=== PATIENT | female | born 1980 | race Caucasian/White ===

== ENCOUNTER 2018-02-17 07:08 | Inpatient (IN) | payer MEDICAID ==
[2018-02-17] MEDS ORDERED: Ondansetron 4 MG/2 ML SDV IVPUSH PRN (07:35)
[2018-02-17] MEDS ORDERED: Nalbuphine 20 MG/1 ML Amp IVPUSH PRN (07:35)
[2018-02-17] MEDS ORDERED: Sodium Chloride 0.9% 10 ML Syringe FLUSH PRN (07:35)
[2018-02-17] MEDS ORDERED: Lactated Ringers 1,000 ML IV SCH (07:45)
[2018-02-17] MEDS ORDERED: Oxytocin/Lactated Ringers 10 UNIT/1,000 ML BAG IV SCH (07:45)
[2018-02-17] MEDS ORDERED: Clindamycin Phosphate 900 MG in Sodium Chloride 0.9% 100 ML IV SCH (08:00)
[2018-02-17] MEDS ORDERED: Clindamycin Phosphate 900 MG/6 ML AdvVial ONE (08:01)
[2018-02-17] MEDS ORDERED: Nalbuphine 20 MG/ML 1 ML Syringe IVPUSH PRN (09:45)
--- NOTE | 2018-02-17 11:40 | PCM.LDHP ---
L&D History of Present Illness - General Date of Service: 02/17/18 Admit Problem/Dx: Patient Status Order with Admit Dx/Problem 02/17/18 08:04 Patient Status [ADT] Routine Admission Diagnosis/Problem Admission Diagnosis/Problem Term 02/17/18 11:32 38-4/7 week intrauterine , active labor, advanced cervical dilation Source of Information: Patient History Limitations: Reports: No Limitations - History of Present Illness Introduction:: Wendy is a 37-year-old 1 para 0 white female who is admitted to labor and delivery on 02/17/2018 in active labor. She has an ROLY of 02/27/2018 placing her at 38-4/7 weeks gestational age. ROLY is return by certain last menstrual period starting 05/23/2017. She is in active labor annita approximately every 3 minutes. Contractions are moderate to strong intensity. Her cervix is dilated to 5 cm she evaluated in labor and delivery. Bag pittman intact. Patient does report some increased vaginal discharge. 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 Patient transferred her care to our clinic at approximately 34 weeks gestational age. [facility] [place] in [place] prior to that. She presently is at risk only because of age of 37. She declined genetic evaluation early in . She desires natural labor but is open to epidural. Group B strep screen is positive. Patient has received clindamycin. Patient made good fundal height growth during the course of her . Baby has been active. Laboratory testing shows blood to be O+, negative and by screen. RPR is nonreactive. Hep HIV is negative as are Chlamydia and gonorrhea assays. Her one- hour GTT was 63. Group B strep screen was positive. Group B strep sensitivity indicated bacteria sensitive to clindamycin. Allergies: animal dandercatheter, amoxicillin tablets, sulfur. Medications: 1. Nasal vitamins daily Past medical history: Unremarkable Past surgical history: Unremarkable Family history: Father secondary to brain cancer and MIs. Mother is alive but has a history of melanoma. One sister with scoliosis and arthritis. Internal grandmother secondary to pneumonia. Maternal grandfather secondary to alcoholic abuse. Paternal grandparents early from work related causes. No bleeding, clotting, and seizure problems noted in the family. Social history patient is single. Significant other is Curly. She does not use any significant most alcohol, drugs tobacco. They live in [place], [place]. Review of systems: General patient has no major concerns. She has had some vaginal discharge and is having contractions. Baby has been active Skin: Negative Lungs: No infectious symptoms or shortness of breath Cardiovascular: No chest pain or exercise tolerance Breasts: Changes associated with only. Patient plans to breast-feed. GI: Negative : Changes associated with including increase in fundal height. Musculoskeletal: Negative except for occasional edema Neurological: Negative Physical exam: On last evaluation in clinic patient is well-developed, well- nourished, pleasant feels stated age in no acute distress. She is oriented 3 appears to be good historian. Blood pressures 132/71. Weight was 222 pounds. heart rate was 144 Skin is warm dry without lesions. HEENT, neck and back within normal limits Lungs are clear with good breath sounds in all lung bower. Cardiovascular exam shows regular rate and rhythm without murmurs. Breasts exam is deferred having been done early in and found to be normal. Patient does plan to breast-feed. Abdomen shows fundal height of 38 cm, baby in vertex presentation, cervix is 5 cm, 95% effaced, 0 station, anterior, very soft Extremities and neurological exam are within normal limits. Pain Score: 3 - Related Data Allergies/Adverse Reactions: Allergies Allergy/AdvReac Type Severity Reaction Status Date / Time amoxicillin Allergy Rash Verified 02/17/18 07:34 Past Medical History - Past Health History Medical/Surgical History: Denies Medical/Surgical History Musculoskeletal History: Reports: Other (See Below) Other Musculoskeletal History: curvature of the spine - Past Surgical History Musculoskeletal Surgical History: Reports: None Social & Family History - Family History Family Medical History: Noncontributory - Tobacco Use Smoking Status *Q: Former Smoker Years of Tobacco use: 8 Packs/Tins Daily: 0.7 Used Tobacco, but Quit: Yes Month/Year Tobacco Last Used: 06/2017 Second Hand Smoke Exposure: Yes - Caffeine Use Caffeine Use: Reports: Coffee - Alcohol Use Number of Drinks Per Day: 0 - Recreational Drug Use Recreational Drug Use: No H&P Review of Systems - Review of Systems: Review Of Systems: See Below L&D Exam - Exam Exam: See Below - Vital Signs Vital Signs: Last Vital Signs Temp 36.4 C 02/17/18 07:35 Pulse 79 02/17/18 08:00 Resp 18 02/17/18 07:35 BP 125/82 02/17/18 07:35 Pulse Ox 99 02/17/18 07:35 Weight: 100.301 kg - Patient Data Lab Results Last 24 hrs: Laboratory Results - last 24 hr 02/17/18 Range/Units 07:55 WBC 13.33 H (3.98-10.04) K/mm3 RBC 3.94 L (3.98-5.22) M/mm3 Hgb 12.4 (11.2-15.7) gm/L Hct 36.4 (34.1-44.9) % MCV 92.4 (79.4-94.8) fl MCH 31.5 (25.6-32.2) pg MCHC 34.1 (32.2-35.5) g/dl RDW Std Deviation 45.7 (36.4-46.3) fL Plt Count 178 L (182-369) K/mm3 MPV 11.2 (9.4-12.3) fl Result Diagrams: 02/17/18 07:55 Problem List Initiated/Reviewed/Updated: Yes Orders Last 24hrs: Active Orders 24 hr Category Date Time Status Patient Status [ADT] Routine ADT 02/17/18 08:04 Active Activity as Tolerated [RC] PFP Care 02/17/18 07:35 Active Antiembolic Devices [RC] .Routine Care 02/17/18 08:06 Active Communication Order [RC] ASDIRECTED Care 02/17/18 07:35 Active Heart Tones [RC] ASDIRECTED Care 02/17/18 07:35 Active Notify Provider [RC] PFP Care 02/17/18 07:35 Active Notify Provider [RC] PRN Care 02/17/18 07:35 Active Peripheral IV Care [RC] . DIRECTED Care 02/17/18 07:35 Active Pump Management, Intrathecal [RC] ASDIRECTED Care 02/17/18 08:03 Active Urinary Catheter Assessment [RC] ASDIRECTED Care 02/17/18 08:03 Active Vital Signs [RC] PER UNIT ROUTINE Care 02/17/18 07:35 Active Clear Liquid Diet [DIET] Diet 02/17/18 Breakfast Active Clindamycin Phosphate [Cleocin] 900 mg Med 02/17/18 08:00 Active Sodium Chloride 0.9% [Normal Saline] 100 ml IV Q8H Lactated Ringers [Ringers, Lactated] 1,000 ml Med 02/17/18 07:45 Active IV ASDIRECTED Lidocaine 1% [Xylocaine 1%] Med 02/17/18 12:00 Once 50 ml INJECT ONETIME ONE Nalbuphine [Nubain] Med 02/17/18 09:45 Active 10 mg IVPUSH Q2H PRN Ondansetron [Zofran] Med 02/17/18 07:35 Active 4 mg IVPUSH Q4H PRN Oxytocin/Lactated Ringers [Pitocin in LR 10 Units/1,000 Med 02/17/18 07:45 Active ML] 10 unit in 1,000 ml IV .CONTINUOUS Sodium Chloride 0.9% [Saline Flush] Med 02/17/18 07:35 Active 10 ml FLUSH ASDIRECTED PRN DVT/VTE Prophylaxis Reflex [OM.PC] Routine Ot 02/17/18 08:06 Ordered Electronic Heart Tones Ext w TOCO [WOMSER] Oth 02/17/18 07:35 Ordered Routine Electronic Heart Tones Internal [WOMSER] Per Unit Ot 02/17/18 07:35 Ordered Routine Peripheral IV Insertion Adult [OM.PC] Routine Oth 02/17/18 07:35 Ordered Sequential Compression Device [OM.PC] Per Unit Routine Ot 02/17/18 08:09 Ordered Resuscitation Status Routine Resus Stat 02/17/18 07:35 Ordered Medication Orders Clindamycin Phosphate 900 mg/ (Sodium Chloride) 106 mls @ 212 mls/hr IV Q8H PRECIOUS Last Admin: 02/17/18 08:16 Dose: 212 mls/hr Lactated Ringer's (Ringers, Lactated) 1,000 mls @ 100 mls/hr IV ASDIRECTED PRECIOUS Last Admin: 02/17/18 08:16 Dose: 100 mls/hr Oxytocin/Lactated Ringer's (Pitocin In Lr 10 Units/1,000 Ml) 10 unit in 1,000 mls @ 500 mls/hr IV .CONTINUOUS PRECIOUS Lidocaine HCl (Xylocaine 1%) 50 ml INJECT ONETIME ONE Stop: 02/17/18 12:01 Nalbuphine HCl (Nubain) 10 mg IVPUSH Q2H PRN PRN Reason: Pain (moderate 4-6) Last Admin: 02/17/18 11:30 Dose: 10 mg Ondansetron HCl (Zofran) 4 mg IVPUSH Q4H PRN PRN Reason: Nausea/Vomiting Last Admin: 02/17/18 11:18 Dose: 4 mg Sodium Chloride (Saline Flush) 10 ml FLUSH ASDIRECTED PRN PRN Reason: Keep Vein Open Assessment/Plan Comment:: Assessment: 1. 38-4/7 week intrauterine , active labor, cervical dilation 2. Group B strep positive, allergic to penicillins, GBS sensitive to clindamycin which has been started. 3. Patient plans to breast-feed 4. Patient desires natural labor possible but is okay with an epidural if necessary. 5. Rubella titer shows immunity Plan: 1. Anticipate normal spontaneous vaginal delivery 2. Natural labor per patient desire 3. Clindamycin per protocol as GBS is sensitive to this antibiotic and patient' s penicillin allergic 4. Support patient's breast-feeding decision 5. CBC
[2018-02-17] MEDS ORDERED: Lidocaine 1% 50 ML MDV INJECT ONE (12:00)
[2018-02-17] MEDS ORDERED: Witch Hazel Medicated Pads 100/Jar TOP PRN ×2 (14:57→18:34)
[2018-02-17] MEDS ORDERED: Benzocaine/Menthol 20%-0.5% Spray 56 GM Canister TOP PRN ×2 (14:58→18:34)
--- NOTE | 2018-02-17 18:28 | PCM.SN ---
- Free Text/Narrative Note: Wendy is a 37-year-old 1 now para 1 white female who was admitted on 02/17/2018 at 38 weeks and 4 days with an ROLY of 02/27/2018 in active labor with advanced cervical dilation to 5 cm. She is annita every 3 minutes. Cervix was 90% effaced, bag pittman, anterior, very soft with cephalic presentation. She progressed steadily in labor to complete cervical dilation and delivered at 1310 hrs. She delivered in an occiput anterior positionA viable, jaramillo, 2700 g (5 pounds 15.2 ounce) female with Apgars of 8 and 9. Patient had a first-degree perineal laceration which was repaired with a single figure-of- eight suture of 3-0 Monocryl. No anesthesia was used. Patient used some Nubain during the course of for laboring analgesia. The baby was placed on mom's abdomen and nose and mouth were bulb suctioned. The cord was allowed to pulsate with delayed cord clamping. The cord was then clamped. It was cut by the baby's father. Cord blood was obtained. Pitocin start facilitate increase in uterine tone and decrease likelihood of bleeding. Central delivered at 1313 hrs. in a Castro fashion, appeared complete and intact and was discarded per patient desire. Estimated blood loss was 100 mL. Patient plans to breast-feed. Condition: Good
[2018-02-17] MEDS ORDERED: Acetaminophen 325 MG Tab PO PRN (18:34)
[2018-02-17] MEDS ORDERED: Lanolin 100% Cream 7 GM Tube TOP PRN (18:34)
[2018-02-17] MEDS ORDERED: Docusate Sodium 100 MG Cap PO PRN (18:34)
[2018-02-17] MEDS: Ibuprofen 600 MG Tab PO PRN (20:32)
[2018-02-18] MEDS: Ibuprofen 600 MG Tab PO PRN ×2 (03:33→10:42)
--- NOTE | 2018-02-18 06:48 | PCM.SN ---
- Free Text/Narrative Note: note: Patient is doing well in the period. Minimal lochia, voiding well, ambulated without problems. Nursing without concerns. Patient is afebrile, vital signs are stable Abdomen is flat, soft, uterus is below the umbilicus and is firm and nontender. Legs are nontender. Hemoglobin is 10.4 Assessment: recovery going well. Plan: Routine care. Patient be discharged home within the next 24- 48 hours.
[2018-02-18] MEDS ORDERED: Prenatal Multivitamin with Calcium/Folic Acid/Iron Tab PO SCH (09:00)
--- NOTE | 2018-02-18 15:11 | PCM.DCSUM1 ---
Discharge Summary - Hospital Course Free Text/Narrative:: Wendy is a 37-year-old 1 now para 1 white female who was admitted on 02/17/2018 at 38 weeks and 4 days with an ROLY of 02/27/2018 in active labor with advanced cervical dilation to 5 cm. She is annita every 3 minutes. Cervix was 90% effaced, bag pittman, anterior, very soft with cephalic presentation. She progressed steadily in labor to complete cervical dilation and delivered at 1310 hrs. She delivered in an occiput anterior positionA viable, jaramillo, 2700 g (5 pounds 15.2 ounce) female with Apgars of 8 and 9. Patient had a first-degree perineal laceration which was repaired with a single figure-of- eight suture of 3-0 Monocryl. No anesthesia was used. Patient used some Nubain during the course of for laboring analgesia. The baby was placed on mom's abdomen and nose and mouth were bulb suctioned. The cord was allowed to pulsate with delayed cord clamping. The cord was then clamped. It was cut by the baby's father. Cord blood was obtained. Pitocin start facilitate increase in uterine tone and decrease likelihood of bleeding. Central delivered at 1313 hrs. in a Castro fashion, appeared complete and intact and was discarded per patient desire. Estimated blood loss was 100 mL. Patient plans to breast-feed. the patient has done well. She reports minimal lochia, is voiding well. She ambulates without concern. She is desiring discharge home. Follow-up CBC is within normal limits for the period - Discharge Data Discharge Date: 02/18/18 Discharge Disposition: Home, Self-Care 01 Condition: Good - Patient Instructions Diet: Regular Diet as Tolerated (nursing diet with increase calories and calcium is recommended) Activity: As Tolerated (No intercourse or tampons until bleeding resolves) Driving: Do Not Drive Showering/Bathing: May Shower (May take a bath) Notify Provider of: Fever, Increased Pain, Swelling and Redness, Nausea and/or Vomiting - Discharge Plan Home Medications: Home Meds PNV95/Ferrous Fumarate/FA [ Tablet] 1 each PO DAILY 02/17/18 [History] Acetaminophen [Tylenol] 650 mg PO Q4H PRN tablet 02/18/18 [Rx] Ibuprofen [IJD: Ibuprofen] 600 mg PO Q4H PRN tablet 02/18/18 [Rx] Patient Handouts: Exclusive , Vaginal Delivery Referrals: Cooper Engle MD [Primary Care Provider] - - Discharge Summary/Plan Comment DC Time >30 min.: No Discharge Summary/Plan Comment: Discharge instructions: 1. Discharge home 2. Diet, activity and follow-up discussed with patient. Recommend nursing diet with increased calories and calcium. 3. Precautions given concern increased pain, bleeding, temperature, signs/ symptoms of DVT/PE. 4. Medications per home medication was printed, discussed with and given to the patient. 5. Return to clinic-Dr. Engle[facility] in 2 weeks. Diagnosis: Term -delivered Condition: Good - Patient Data Vitals - Most Recent: Last Vital Signs Temp 36.4 C 02/17/18 19:43 Pulse 68 02/17/18 19:43 Resp 18 02/17/18 19:43 BP 119/83 02/17/18 19:43 Pulse Ox 97 02/17/18 19:43 Weight - Most Recent: 100.301 kg I&O - Last 24 hours: Intake & Output 02/18/18 02/18/18 02/18/18 06:59 14:59 22:59 Intake Total 0 Balance 0 Lab Results - Last 24 hrs: Laboratory Results - last 24 hr 02/18/18 Range/Units 06:15 WBC 12.19 H (3.98-10.04) K/mm3 RBC 3.40 L (3.98-5.22) M/mm3 Hgb 10.8 L (11.2-15.7) gm/L Hct 31.9 L (34.1-44.9) % MCV 93.8 (79.4-94.8) fl MCH 31.8 (25.6-32.2) pg MCHC 33.9 (32.2-35.5) g/dl RDW Std Deviation 45.9 (36.4-46.3) fL Plt Count 164 L (182-369) K/mm3 MPV 10.6 (9.4-12.3) fl Med Orders - Current: Current Medications Acetaminophen (Tylenol) 650 mg PO Q4H PRN PRN Reason: mild pain or fever Benzocaine/Menthol (Dermoplast Pain Relief [place]den) 0 gm TOP ASDIRECTED PRN PRN Reason: Perineal Comfort Measure Docusate Sodium (Colace) 100 mg PO BID PRN PRN Reason: Constipation Emollient Ointment (Lansinoh Hpa) 0 gm TOP ASDIRECTED PRN PRN Reason: Sore Nipples Ibuprofen (Motrin) 600 mg PO Q4H PRN PRN Reason: Mild pain or fever Last Admin: 02/18/18 10:42 Dose: 600 mg Prenat Multivit/Tank Driver/Iron/Folic Ac ( Plus Iron) 1 each PO DAILY [facility] Last Admin: 02/18/18 10:43 Dose: Not Given Witch Christa (Tucks) 1 pad TOP ASDIRECTED PRN PRN Reason: Hemorrhoid pain Discontinued Medications Benzocaine/Menthol (Dermoplast Pain Relief [place]den) 1 gm TOP ASDIRECTED PRN PRN Reason: Perineal Comfort Measure Clindamycin Phosphate (Cleocin) Confirm Administered Dose 900 mg .ROUTE .STK- MED ONE Stop: 02/17/18 08:02 Last Admin: 02/17/18 08:11 Dose: Not Given Clindamycin Phosphate 900 mg/ (Sodium Chloride) 106 mls @ 212 mls/hr IV Q8H [facility] Last Admin: 02/17/18 08:16 Dose: 212 mls/hr Lactated Ringer's (Ringers, Lactated) 1,000 mls @ 100 mls/hr IV ASDIRECTED [facility] Last Admin: 02/17/18 08:16 Dose: 100 mls/hr Oxytocin/Lactated Ringer's (Pitocin In Lr 10 Units/1,000 Ml) 10 unit in 1,000 mls @ 500 mls/hr IV .CONTINUOUS [facility] Last Admin: 02/17/18 13:13 Dose: 500 mls/hr Lidocaine HCl (Xylocaine 1%) 50 ml INJECT ONETIME ONE Stop: 02/17/18 12:01 Nalbuphine HCl (Nubain) 10 mg IVPUSH Q2H PRN PRN Reason: Pain (moderate 4-6) Last Admin: 02/17/18 08:52 Dose: 10 mg Nalbuphine HCl (Nubain) 10 mg IVPUSH Q2H PRN PRN Reason: Pain (moderate 4-6) Last Admin: 02/17/18 11:30 Dose: 10 mg Ondansetron HCl (Zofran) 4 mg IVPUSH Q4H PRN PRN Reason: Nausea/Vomiting Last Admin: 02/17/18 11:18 Dose: 4 mg Sodium Chloride (Saline Flush) 10 ml FLUSH ASDIRECTED PRN PRN Reason: Keep Vein Open Kady Goodwin (Tucks) 1 pad TOP ASDIRECTED PRN PRN Reason: Perineal Comfort Measure
== END 2018-02-18 17:20 | disposition home or self-care (01) | DRG 775 ==
LOC: JD.OBCHECK 07:08 → JD.OB 08:04 → OBSVTOIN 13:10 → JD.OB 13:11
PROVIDERS: ADMIT Obstetrics & Gynecology; ATTEND Obstetrics & Gynecology
PROC: 10E0XZZ Delivery of Products of Conception, External Approach (ICD-10-PCS; principal; 2018-02-17)
PROC: 0HQ9XZZ Repair Perineum Skin, External Approach (ICD-10-PCS; 2018-02-17)
DX: O70.0 First degree perineal laceration during delivery (principal); Z3A.38 38 weeks gestation of pregnancy; Z37.0 Single live birth; O99.824 Streptococcus B carrier state complicating childbirth; Z88.0 Allergy status to penicillin; Z87.891 Personal history of nicotine dependence; Z88.2 Allergy status to sulfonamides
CPT/HCPCS: 36415; 59025; 59300; 59409; 85027; A9270-GY; J2300; J2405; J2590; J7030; J7120